=== PATIENT | female | born 1955 | race Caucasian/White ===

== ENCOUNTER → 2018-09-19 12:58 | Outpatient (CLI) | payer OTHER, SELFPAY ==
--- NOTE | 2018-09-19 13:01 | DI.RAD.S_ITS ---
PROCEDURE: XR CHEST 2V INDICATIONS: worsening cough TECHNIQUE: 2 views of the chest were acquired. COMPARISON: None. FINDINGS: Surgical changes and devices: None. Lungs and pleura: Increased bronchovascular markings in bilateral hilar region are seen with mild bronchial wall thickening. Subtle opacity is seen in left lower lung field concerning for small left lower lobe infiltrate. No pleural effusions or pneumothorax. Mediastinum: Mediastinal contours are normal. Heart size is normal. Bones and chest wall: No suspicious bony abnormalities. Soft tissues appear unremarkable. IMPRESSION: Findings suggestive of reactive airway disease such as bronchitis or asthma. Small left lower lobe infiltrate cannot be excluded. Clinical correlation and followup is recommended. Dictated by: Imer Oneil M.D. on 09/19/2018 at 13:23 Approved by: Imer Oneil M.D. on 09/19/2018 at 13:24
== END ==
PROVIDERS: PCP Physician Assistant Medical; Visit Provider Physician Assistant
DX: R05 Cough (principal)
CPT/HCPCS: 71046

== ENCOUNTER → 2018-11-22 15:03 | Outpatient (CLI) | payer OTHER, SELFPAY ==
--- NOTE | 2018-11-22 15:08 | DI.RAD.S_ITS ---
PROCEDURE: XR FOOT LT MIN 3V INDICATIONS: Rolled ankle, pain and swelling, limited WB TECHNIQUE: 3 views of the foot were acquired. COMPARISON: None. FINDINGS: Bones: No fractures or dislocations. 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 No suspicious bony lesions. Soft tissues: No tibiotalar joint effusion. Achilles tendon appears normal. IMPRESSION: No evidence acute bony abnormality of the left foot. Advanced first MTP degenerative change. Dictated by: Myke Mujica M.D. on 11/22/2018 at 15:31 Approved by: Myke Mujica M.D. on 11/22/2018 at 15:32
--- NOTE | 2018-11-22 15:08 | DI.RAD.S_ITS ---
PROCEDURE: XR CHEST 2V INDICATIONS: recent pneumonia, green sputum, cough TECHNIQUE: 2 views of the chest were acquired. COMPARISON: [facility], CR, XR CHEST 2V, 09/19/2018, 13:06. FINDINGS: Surgical changes and devices: None. Lungs and pleura: Lungs are clear. No pleural effusions or pneumothorax. Mediastinum: Mediastinal contours are normal. Heart size is normal. Bones and chest wall: No suspicious bony abnormalities. Soft tissues appear unremarkable. IMPRESSION: Interstitial prominence, previously present, with possible slight lung base scarring from the past but no pneumonia is found. Dictated by: Charanjit Parker M.D. on 11/22/2018 at 15:44 Approved by: Charanjit Parker M.D. on 11/22/2018 at 15:44
--- NOTE | 2018-11-22 15:08 | DI.RAD.S_ITS ---
PROCEDURE: XR ANKLE LT MIN 3V INDICATIONS: Rolled ankle, pain and swelling, limited WB TECHNIQUE: 3 views of the ankle were acquired. COMPARISON: None. FINDINGS: Bones: No fractures or dislocations. Ankle mortise is normally aligned. No suspicious bony lesions. Soft tissues: No tibiotalar joint effusion. Achilles tendon appears normal. IMPRESSION: No evidence acute bony abnormality of the left ankle Dictated by: Myke Mujica M.D. on 11/22/2018 at 15:30 Approved by: Myke Mujica M.D. on 11/22/2018 at 15:31
== END ==
PROVIDERS: PCP Physician Assistant Medical; Visit Provider Physician Assistant
DX: S99.912A Unspecified injury of left ankle, initial encounter (principal); R05 Cough; M25.572 Pain in left ankle and joints of left foot; M25.472 Effusion, left ankle; M19.072 Primary osteoarthritis, left ankle and foot
CPT/HCPCS: 71046; 73610; 73630

== ENCOUNTER → 2023-02-20 12:08 | Outpatient (CLI) | payer OTHER, SELFPAY ==
[2023-02-20 14:43] LABS: Add Manual Diff / Slide Review NO; Basophils Absolute Auto 100 /uL (0-100); Eosinophils Absolute Auto 100 /uL (0-450); Hemoglobin 15.3 g/dL (12.0-16.0); Lymphocytes Absolute Auto 2300 /uL (1100-4500); Lymphocytes Percent Auto 28.2 % (25-40); Mean Corpuscular HGB Conc 33.3 % (30-36); Mean Corpuscular Hemoglobin 27.5 PG (26-34); Mean Corpuscular Volume 82.6 fL (80-100); Monocytes Absolute Auto 500 /uL (0-900); Monocytes Percent Auto 5.9 % (3-14); Neutrophils Absolute Auto 5200 /uL (1500-7000); Neutrophils Percent Auto 63.9 % (50-75); Platelet Count 348 X10^3/uL (150-400); Red Blood Cell Count 5.57 X10^6/uL (4.0-5.2); White Blood Cell Count 8.1 X10^3/uL (4.5-11.0)
[2023-02-20 15:06] LABS: Alanine Aminotransferase 24 IU/L (<35); Albumin 4.4 g/dL (3.5-5.0); Albumin Globulin Ratio 1.3 (1.0-2.8); Alkaline Phosphatase 96 U/L (38-126); Aspartate Aminotransferase 23 IU/L (14-36); BUN Creatinine Ratio 24.6 (6-22); Bilirubin Total 0.7 mg/dL (0.2-1.3); Blood Urea Nitrogen 17 mg/dL (7-17); Calcium 10.8 mg/dL (8.4-10.2); Carbon Dioxide 27 mmol/L (22-32); Chloride 98 mmol/L (98-107); Cholesterol 176 mg/dL (140-199); Estimated Glomerular Filt Rate > 60 mL/min (>60); Globulin 3.4 g/dL (1.7-4.1); Glucose 86 mg/dL (80-110); HDL Cholesterol 60 mg/dL (40-60); HEMOLYSIS < 15 (0-50); LDL Cholesterol Calculated 91 mg/dL (<100); Potassium 4.7 mmol/L (3.4-5.1); Sodium 135 mmol/L (137-145); Total Protein 7.8 g/dL (6.3-8.2); Triglycerides 125 mg/dL (35-150)
== END ==
PROVIDERS: PCP Family Medicine; Referring Provider Family Medicine; Visit Provider Family Medicine
DX: J44.9 Chronic obstructive pulmonary disease, unspecified (principal); I10 Essential (primary) hypertension; M54.9 Dorsalgia, unspecified; G89.29 Other chronic pain; F41.9 Anxiety disorder, unspecified
CPT/HCPCS: 36415; 80053; 80061; 84443; 85025

== ENCOUNTER → 2023-06-20 09:35 | Outpatient (CLI) | payer OTHER, SELFPAY | LOC: RESP 09:36 | PROVIDERS: PCP Family Medicine; Referring Provider Family Medicine; Visit Provider Family Medicine | DX: J44.9 Chronic obstructive pulmonary disease, unspecified (principal); Z87.891 Personal history of nicotine dependence | CPT/HCPCS: 94060 ==

== ENCOUNTER → 2023-07-11 11:26 | Outpatient (CLI) | payer OTHER, SELFPAY ==
--- NOTE | 2023-07-11 11:28 | DI.CT.S_ITS ---
PROCEDURE: CT LUNG LOW DOSE SCREENING INDICATIONS: routine screening TECHNIQUE: Noncontrast 2.0-2.5 mm thick sections acquired from the pulmonary apices to the posterior costophrenic angles. 7 mm thick axial MIP, and 5 mm coronal and sagittal reformats were then acquired. For radiation dose reduction, the following was used: automated exposure control, adjustment of mA and/or kV according to patient size. COMPARISON: CR, XR CHEST 2V, 11/22/2018, 15:07. FINDINGS: Image quality: Diagnostic. Lower Neck: No enlarged lymph nodes. Thyroid: No thyroid nodules which require sonographic follow up, per consensus guidelines. Axillae: No enlarged lymph nodes. Chest Wall: Unremarkable. Bones: Unremarkable. Lungs and Pleura: No pneumothorax or pleural effusions. No consolidation or suspicious nodules. Streaky opacities are present in the left base. Nodular opacity is present in the left base measuring 8 mm. No priors are Heart: Heart size is normal. No pericardial effusion. Thoracic Vessels: The aorta and pulmonary arteries demonstrate normal size. Mediastinum and Ana: No enlarged lymph nodes. Esophagus: No wall thickening. No hiatal hernia. Upper Abdomen: Visualized upper abdomen solid organs and bowel loops appear normal. IMPRESSION: 8 mm nodule in the right base. LUNG-RADS 4A; three-month CT or PET follow-up Clinically Significant Non-pulmonary Findings: None. Dictated by: Bianca Alvarez M.D. on 07/11/2023 at 12:59 Approved by: Bianca Alvarez M.D. on 07/11/2023 at 13:08
--- NOTE | 2023-07-11 11:28 | DI.RAD.S_ITS ---
PROCEDURE: XR DEXA AXIAL SKELETON INDICATIONS: routine screening COMPARISON: None. FINDINGS: Lumbar Spine: Bone mineral density 0.956 g/cm2, T score -0.8, normal. Left Hip: Bone mineral density 0.797 g/cm2, T score -1.2, osteopenia. Left Femoral Neck: Bone mineral density 0.565 g/cm2, T score -2.6, osteoporosis. Right Hip: Bone mineral density 0.786 g/cm2, T score -1.3, osteopenia. Right Femoral Neck: Bone mineral density 0.616 g/cm2, T score -2.1, osteoporosis. Fracture Risk Calculation (when applicable): Cannot be calculated due to osteoporosis diagnosis. (T score greater or equal to -1.0 to: NORMAL) (T score from -1.1 to -2.4: OSTEOPENIA) (T score less than or equal to -2.5: OSTEOPOROSIS) IMPRESSION: Osteoporosis. Follow-up guidelines as follows: Osteoporosis: Consider a repeat DEXA and Vertebral Fracture Assessment (VFA) exam in 2 years or sooner if medically necessary, to reassess this patient's status. Osteopenia: Consider a repeat DEXA in 2-3 years to reassess this patient's status, or if there is a new clinical indication. Normal: Consider a repeat DEXA in 5 years or sooner, or if there is a new clinical indication. Dictated by: Nikunj Winter M.D. on 07/11/2023 at 13:30 Approved by: Nikunj Winter M.D. on 07/11/2023 at 13:36
--- NOTE | 2023-07-11 11:28 | DI.MG.S_ITS ---
BILATERAL DIGITAL SCREENING MAMMOGRAM 3D/2D WITH CAD: 07/11/2023 CLINICAL: Routine screening. Comparison is made to exams dated: 03/21/2022 mammogram, 08/24/2020 mammogram, and 01/11/2017 mammogram - [facility]. Both breasts are heterogeneously dense, which may obscure small masses (category c / 51-75% glandular tissue). Current study was also evaluated with a Computer Aided Detection (CAD) system. There are benign calcifications in both breasts. No significant masses, calcifications, or other findings are seen in either breast. There has been no significant interval change. IMPRESSION: BENIGN There is no mammographic evidence of malignancy. A 1 year screening mammogram is recommended. Based on the Tyrer Cuzick model (a risk assessment model) the patient's lifetime risk is 8.6% and her 10 year risk is 4.1%. According to the ACR, ACS, and NCCN guidelines, an annual breast MRI exam along with mammogram is recommended if the patient's lifetime risk is 20% or greater. This exam was interpreted at Station ID: [id number]. NOTE: For mammograms, a report in lay terms will be sent to the patient. Approximately 15% of breast malignancies will not be visualized mammographically. In the management of a palpable breast mass, a negative mammogram must not discourage biopsy of a clinically suspicious lesion. Electronically Signed By: González barber/elmer:07/11/2023 12:56:07 letter sent: Normal Exam ACR BI-RADS Category 2: Benign Finding(s) 3342F
== END ==
PROVIDERS: PCP Family Medicine; Referring Provider Family Medicine; Visit Provider Family Medicine
DX: Z12.31 Encounter for screening mammogram for malignant neoplasm of breast (principal); Z87.891 Personal history of nicotine dependence; M85.89 Other specified disorders of bone density and structure, multiple sites; R91.1 Solitary pulmonary nodule; Z12.2 Encounter for screening for malignant neoplasm of respiratory organs; M81.0 Age-related osteoporosis without current pathological fracture
CPT/HCPCS: 71271; 77063; 77067; 77080

== ENCOUNTER → 2023-07-27 09:06 | Outpatient (CLI) | payer OTHER, SELFPAY ==
--- NOTE | 2023-07-27 09:07 | DI.ECHO.S_ITS ---
[facility] : : [address] : : [id number] : : Phone: [phone] Echocardiogram Report + + :Name: ANUSHA GRAHAM Study Date: 07/27/2023 Height: 66 in : :Hospital ReadingLocation: Weight: 222 lb : : Gender: Female BSA: 2.1 m2 : :: 1955 Age: 67 yrs BP: 123/65 mmHg: :Reason For Study: EXERTIONAL FATIGUE : :Ordering Physician: VALERI, : :SARAVANAN Performed By: Giuliana Pinto : :Referring: SARAVANAN TRAMMELL : + + Interpretation Summary 1) Normal left ventricular thickness, size, wall motion, and systolic function (EF 55-60%). 2) Normal right ventricular size and function. 3) No significant valvular abnormalities. 4) No prior Echo available for comparison. Procedure: A two-dimensional transthoracic echocardiogram with color flow and Doppler was performed. The study quality was technically adequate. There is no prior echocardiogram noted for this patient. The patient was in sinus bradycardia with heart rates between 54-59 bpm during the exam. Left Ventricle: The left ventricle is normal in size and wall thickness. The ejection fraction is estimated to be 55-60%. Left ventricular systolic function appears normal without focal wall motion abnormalities. Right Ventricle: The right ventricle is normal in size and function. Atria: The left atrial size is normal. Right atrial size is normal. There is no Doppler evidence for an interatrial shunt. Mitral Valve: The mitral valve is normal in structure and function. There is mild mitral annular calcification. There is no mitral regurgitation noted. Aortic Valve: The aortic valve is trileaflet. The aortic valve opens well. There is no aortic valve stenosis. No aortic regurgitation is present. Tricuspid Valve: The tricuspid valve is normal in structure and function. No tricuspid regurgitation. Pulmonary artery pressures cannot be estimated because of the lack of a measurable TR jet velocity. Pulmonic Valve: The pulmonic valve leaflets are thin and pliable; valve motion is normal. There is trace pulmonic regurgitation. Great Vessels: The aortic root is normal size. The dimensions of the ascending aorta are normal. The IVC is of normal diameter and collapses greater than 50% with a sniff. This suggests a low right atrial pressure of 3 mm Hg. Pericardium/ Pleura There is no pericardial effusion. There is no pleural effusion. MMode/2D Measurements & Calculations LVIDd: 5.0 cm LVOT diam: 2.2 cm LVIDs: 3.0 cm Ao root diam: 3.1 cm FS: 39.7 % asc Aorta Diam: 3.2 cm IVSd: 0.83 cm Ao Arch Diam (Prox Trans): 3.5 cm LVPWd: 0.83 cm LV montoya. diameter/BSA (cm/m^2): 2.4 LV sys. diameter/BSA (cm/m^2): 1.4 LA A2 area: 17.0 cm2 RA long axis: 4.8 cm LA A4 area: 23.1 cm2 RA area: 18.1 cm2 LA length (vol): 6.4 cm RA vol: 57.9 ml LA vol: 51.7 ml RA : 27.7 ml/m2 LA vol index: 24.7 ml/m2 IVC diam: 1.5 cm RVD1 (basal): 3.5 cm RVD2 (mid): 3.3 cm TAPSE: 1.9 cm Doppler Measurements & Calculations Ao V2 max: 146.0 cm/sec LVOT Max David: 82.0 cm/sec Ao V2 mean: 100.3 cm/sec LV V1 max P.7 mmHg Ao max P.5 mmHg LV V1 VTI: 20.0 cm Ao mean P.5 mmHg AUTUMN(I,D): 2.2 cm2 Ao V2 VTI: 33.2 cm AUTUMN(V,D): 2.0 cm2 sev ratio: 0.60 AUTUMN indexed to BSA (cm^2/m^2): 1.0 MV E max david: 84.5 cm/sec PA V2 max: 86.8 cm/sec MV A max david: 66.0 cm/sec PA V2 mean: 59.3 cm/sec MV E/A: 1.3 PA mean P.6 mmHg Med Peak E' David: 7.0 cm/sec E/E' med: 12.1 Lat Peak E' David: 8.5 cm/sec E/E' lat: 10.0 E/e' average: 11.0 MV dec time: 0.24 sec SV(LVOT): 72.9 ml Reading Physician:03:45 PM
== END ==
PROVIDERS: PCP Family Medicine; Referring Provider Family Medicine; Visit Provider Family Medicine
DX: I34.81 Nonrheumatic mitral (valve) annulus calcification (principal); T73.3XXA Exhaustion due to excessive exertion, initial encounter
CPT/HCPCS: 93306

== ENCOUNTER 2023-10-24 11:41 | Day surgery (SDC) | payer OTHER, SELFPAY ==
--- NOTE | 2023-10-24 | PATH_ITS ---
[facility] Accession Number: [id number] No. of containers..01 Tissue . 01 Material submitted: . sigmoid colon - SIGMOID POLYP . 01 Diagnosis: SIGMOID POLYP: Tubular adenoma with focal high-grade dysplasia. No invasive malignancy identified. Polyp appears to be completely excised. See comment. . Specimen Comments: At the base of the polyp stalk, there is a rim of nonadenomatous colonic mucosa, suggesting that the polyp is completely excised. Correlation with the clinical endoscopic appearance before and after polypectomy is recommended for further evaluation. [facility] 10/26/20231428 Local . 01 Electronically signed: . Cale Levy MD, Pathologist NPI- [id number] . 01 Gross description: . SIGMOID POLYP: Received in formalin is 1 fragment(s) of brown, soft tissue measuring 1.4 x 1.3 x 1.7 cm which is inked serially sectioned and submitted entirely in 2 cassette(s) /[facility] 10/26/20231428 Local . 01 Pathologist provided ICD-10: D12.5 . 01 CPT . 037561 Specimen Comment: A courtesy copy of this report has been sent to [phone] Performed at: [address] [address], [place], [place] [id number] MD Cale Levy MD Phone: [phone]
[2023-10-24 12:05] VITALS: BP 140/70; PULSE 80; RESP 22; TEMP 36.2; O2SAT 93
[2023-10-24] MEDS: LACTATED RINGERS 1,000 ML 42 ML IV (12:18)
--- NOTE | 2023-10-24 12:37 | PM.HP.1 ---
History of Present Illness History of Present Illness Date Patient Seen: 10/24/23 Time Patient Seen: 12:37 Chief complaint: Screening Colonoscopy Narrative: 68-year-old woman no prior colonoscopy here for screening colonoscopy. No abdominal concerns today. No family history of colon cancer. [facility] Medical History Lung nodule Hypercalcemia Tobacco use disorder Preventative health care Hyperlipidemia Sleep apnea (~2018) COPD (chronic obstructive pulmonary disease) (~2016) Allergies (~1989) Anxiety Restless leg syndrome Osteoporosis Osteopenia Fractures (~2010) Chronic back pain Mumps Chicken pox Painful menstrual periods (~1969) Hypertension Surgical History History of section Family History Brother Diabetes mellitus Sister Diabetes mellitus Mother COPD (chronic obstructive pulmonary disease) with emphysema Social History Smoking Status: Former smoker alcohol intake: current Meds Home Medications and Allergies Home Medications Medication Instructions Recorded Confirmed Type trazodone 50 mg tablet 25 mg (1/2 x 50 mg) PO BEDTIME PRN 02/21/23 09/19/23 Rx insomnia #90 tabs albuterol sulfate 90 mcg/actuation 2 puff inhalation Q4H PRN for 05/17/23 09/19/23 Rx aerosol inhaler wheezing #8.5 grams atorvastatin 20 mg tablet 20 mg PO DAILY #90 tabs 05/19/23 09/19/23 Rx carvedilol 25 mg tablet 25 mg PO BID #180 tabs 05/19/23 09/19/23 Rx fluticasone 500 mcg-salmeterol 50 1 ea inhalation BID #60 ea 05/19/23 09/19/23 Rx mcg/dose blistr powdr for inhalation (Advair Diskus) hydrochlorothiazide 25 mg tablet 25 mg PO DAILY #90 tabs 05/19/23 09/19/23 Rx tiotropium bromide 18 mcg capsule 1 cap inhalation DAILY #90 05/19/23 09/19/23 Rx with inhalation device (Spiriva inhalations with HandiHaler) risedronate 35 mg tablet (Actonel) 35 mg PO QWEEK #12 tabs 08/09/23 09/19/23 Rx sodium,potassium,mag sulfates 17.5 See Rx Instructions PO .COMPLEX 09/13/23 09/19/23 Rx gram-3.13 gram-1.6 gram oral soln #354 mL (Suprep Bowel Prep Kit) Allergies Allergy/AdvReac Type Severity Reaction Status Date / Time No Known Drug Allergies Allergy Verified 09/19/23 13:02 Exam Vital Signs (past 8 hours): - 10/24/23 12:05 Temperature 97.2 F L Pulse Rate 80 Respiratory Rate 22 Blood Pressure 140/70 Pulse Oximetry 93 Oxygen Delivery Method Room Air Oxygen Delivery Method Room Air Narrative Exam Narrative: General adult woman alert oriented no acute distress Chest nonlabored respiration Extremities warm well perfused Assessment & Plan Assessment & Plan narrative: The patient requires colorectal screening and colonoscopy is recommended. Technical details were discussed. Risks, benefits, alternatives explained. Risks including but not limited to myocardial infarction, aspiration, bleeding, pain, missed lesion, incomplete examination, need for further radiographic studies, intestinal injury, and need for major abdominal surgery were discussed. All questions were answered to their satisfaction, and they are in agreement with this plan. Time-Based Coding :: [TOTAL MINUTES] spent with patient and on the chart (including review of chart, obtaining history, exam, reviewing outside data, placing orders, documenting exam and treatment plan, and counseling patient) on [DATE].
[2023-10-24 13:06] VITALS: BP 102/62; PULSE 78; RESP 21; TEMP 36.6; O2SAT 94
--- NOTE | 2023-10-24 13:08 | P.OP.COLON_ITS ---
Operative Date/Time/Diagnoses Date of procedure: 10/24/23 Time of procedure: 13:08 Pre-op diagnosis: Colorectal screening Post-op diagnosis: other (Colonic polyp x1) Procedure & Clinicians Study performed: Colonoscopy Same procedure as scheduled: Yes Indications: Colorectal screening Surgeon: Yrn Alcantar Procedure Notes Procedure in detail: The history and physical was performed/updated and the patient is ASA class is 2. The procedure was discussed in detail with the patient. Potential risks complications including infection, bleeding, missed diagnosis, perforation, need for surgery, and were explained. Their questions were answered and informed consent was obtained. Patient was brought to the procedure room and placed standard monitoring equipment. The patient's vital signs were monitored continuously throughout the entire procedure. Prior to starting time-out was performed. The patient was placed in the left lateral recumbent position. Procedural sedation was administered by anesthesia. Examination began with a thorough inspection of the perianal area there was no evidence of fissures, fistulae, external hemorrhoids or cutaneous malignancy. The colonoscopy scope was then placed into the anal canal and was advanced to the cecum, which was identified by the ileocecal valve, the appendiceal orifice and the confluence of the taenia. The scope was then slowly withdrawn examining colon thoroughly in all directions, irrigating it of any residual stool. The scope was retroflexed within the rectum The patient tolerated the procedure well. They will be discharged once criteria are met. The prep was of good/excellent quality. The withdrawl time was 10 minutes. FINDINGS * 1.5 cm pedunculated polyp within the sigmoid colon. Removed with hot snare in entirety. Site of polyp tattooed. 30 cm from the verge * Internal hemorrhoids Specimen(s): other (Sigmoid polyp) Impression: Colonic polyp x1 Post-procedure Plan for aftercare: Follow-up is dependent on pathology findings Disposition: same day surgery
[2023-10-24 13:10] VITALS: BP 110/67; PULSE 78; RESP 15; O2SAT 94
== END 2023-10-24 13:36 | disposition home or self-care (01) ==
PROVIDERS: PCP Family Medicine; Referring Provider Family Medicine; Visit Provider Surgery
PROC: 0DJD8ZZ Inspection of Lower Intestinal Tract, Via Natural or Artificial Opening Endoscopic (ICD-10-PCS; CPT 45378; principal; 2023-10-24 13:15)
DX: Z12.11 Encounter for screening for malignant neoplasm of colon (principal); K64.8 Other hemorrhoids; D12.5 Benign neoplasm of sigmoid colon
CPT/HCPCS: 45381; 45385; J2704

== ENCOUNTER → 2024-04-26 08:00 | Outpatient (CLI) | payer MEDICARE, SELFPAY ==
[2024-04-26 08:44] LABS: Add Manual Diff / Slide Review NO; Basophils Absolute Auto 100 /uL (0-100); Eosinophils Absolute Auto 100 /uL (0-450); Eosinophils Percent Auto 2.2 % (2-4); Hematocrit 41.8 % (36-46); Hemoglobin 13.4 g/dL (12.0-16.0); Lymphocytes Absolute Auto 1900 /uL (1100-4500); Lymphocytes Percent Auto 31.4 % (25-40); Mean Corpuscular HGB Conc 32.1 % (30-36); Mean Corpuscular Hemoglobin 26.8 PG (26-34); Mean Corpuscular Volume 83.7 fL (80-100); Monocytes Absolute Auto 500 /uL (0-900); Monocytes Percent Auto 7.6 % (3-14); Neutrophils Absolute Auto 3400 /uL (1500-7000); Neutrophils Percent Auto 57.8 % (50-75); Platelet Count 302 X10^3/uL (150-400); Red Blood Cell Count 4.99 X10^6/uL (4.0-5.2); Red Cell Distribution Width 14.7 % (11.6-14.8); White Blood Cell Count 5.9 X10^3/uL (4.5-11.0)
[2024-04-26 09:08] LABS: Alanine Aminotransferase 21 IU/L (<35); Albumin 4.4 g/dL (3.5-5.0); Albumin Globulin Ratio 1.7 (1.0-2.8); Alkaline Phosphatase 79 U/L (38-126); Aspartate Aminotransferase 23 IU/L (14-36); BUN Creatinine Ratio 20.3 (6-22); Bilirubin Total 0.5 mg/dL (0.2-1.3); Blood Urea Nitrogen 15 mg/dL (7-17); Calcium 9.7 mg/dL (8.4-10.2); Carbon Dioxide 30 mmol/L (22-32); Chloride 104 mmol/L (98-107); Cholesterol 144 mg/dL (140-199); Estimated Glomerular Filt Rate > 60 mL/min (>60); Globulin 2.6 g/dL (1.7-4.1); Glucose 95 mg/dL (80-110); HDL Cholesterol 58 mg/dL (40-60); HEMOLYSIS < 15 (0-50); LDL Cholesterol Calculated 74 mg/dL (<100); Potassium 4.9 mmol/L (3.4-5.1); Sodium 139 mmol/L (137-145); Triglycerides 60 mg/dL (35-150)
[2024-04-26 09:36] LABS: TSH w/ Reflex to FT4 1.89 uIU/mL (0.47-4.68)
== END ==
PROVIDERS: PCP Family Medicine; Referring Provider Family Medicine; Visit Provider Family Medicine
DX: Z00.00 Encounter for general adult medical examination without abnormal findings (principal); J44.9 Chronic obstructive pulmonary disease, unspecified; I10 Essential (primary) hypertension; E78.5 Hyperlipidemia, unspecified
CPT/HCPCS: 36415; 80053; 80061; 84443; 85025

== ENCOUNTER → 2024-07-18 09:52 | Outpatient (CLI) | payer MEDICARE, SELFPAY ==
--- NOTE | 2024-07-18 09:55 | DI.CT.S_ITS ---
PROCEDURE: CT CHEST WO CON INDICATIONS: nodule follow up TECHNIQUE: Noncontrast 5 mm thick sections acquired from the pulmonary apices to the posterior costophrenic angles. 1 mm lung window, 5 mm thick coronal and sagittal and 7 mm axial MIP reformats were then acquired. For radiation dose reduction, the following was used: automated exposure control, adjustment of mA and/or kV according to patient size. COMPARISON: [facility], CT, CT LUNG LOW DOSE SCREENING, 07/11/2023, 11:42. FINDINGS: Image quality: Diagnostic. Lower Neck: No enlarged lymph nodes. Thyroid: No thyroid nodules which require sonographic follow up, per consensus guidelines. Axillae: No enlarged lymph nodes. Chest Wall: Unremarkable. Bones: Unremarkable. Lungs and Pleura: No pneumothorax or pleural effusions. Stable appearance of a 1 cm area of bronchiolectasis with adjacent ground-glass density in the right upper lobe. There are [id number] band-like parenchymal densities in the mid to lower lungs bilaterally. Underlying COPD again seen. Heart: Heart size is normal. No pericardial effusion. Thoracic Vessels: The aorta and pulmonary arteries demonstrate normal size. Mediastinum and Ana: No enlarged lymph nodes. Esophagus: No wall thickening. No hiatal hernia. Upper Abdomen: Visualized upper abdomen solid organs and bowel loops appear normal. IMPRESSION: 1. Stable appearance of a mildly complex lung parenchymal lesion in the right upper lobe as described, which may be inflammatory or less likely due to adenocarcinoma spectrum lesion. This can be reassessed with a follow-up study in 1 year. 2. Allowing for bilateral mid to lower lung scarring/atelectasis, no other significant focal lesion seen. Dictated by: Osmar Xavier M.D. on 07/18/2024 at 16:11 Approved by: Osmar Xavier M.D. on 07/18/2024 at 16:18
== END ==
LOC: CT 09:55
PROVIDERS: PCP Family Medicine; Referring Provider Internal Medicine Critical Care Medicine; Visit Provider Internal Medicine Critical Care Medicine
DX: R91.1 Solitary pulmonary nodule (principal); J47.9 Bronchiectasis, uncomplicated; J98.11 Atelectasis; J98.4 Other disorders of lung
CPT/HCPCS: 71250

== ENCOUNTER → 2024-07-18 09:55 | Outpatient (CLI) | payer MEDICARE, SELFPAY ==
--- NOTE | 2024-07-18 09:56 | DI.MG.S_ITS ---
MM screening mammo BI: 07/18/2024. BI-RADS: 1 CLINICAL: 68-year old female for bilateral screening mammogram. Tyrer-Cuzick lifetime risk of 11.1%. No personal or first-degree family history of breast cancer. PRIOR EXAMS 07/11/2023, 03/21/2022, 08/24/2020. MAMMOGRAPHY TECHNIQUE: 2D and 3D (tomosynthesis) digital mammographic views obtained, with additional images as needed for full coverage. Current study was also evaluated with a Computer Aided Detection (CAD) system. DENSITY C. The breasts are heterogeneously dense, which may obscure small masses. MAMMOGRAPHY FINDINGS Bilateral: No suspicious mass, asymmetry, microcalcification, or other abnormality seen. IMPRESSION: * No evidence of malignancy. RECOMMENDATIONS Bilateral * Annual screening mammography. OVERALL ASSESSMENT CATEGORY BI-RADS-1: Negative. The [employer] recommends annual screening mammography beginning at age 40 for women with average risk of breast cancer. ELECTRONICALLY SIGNED: Sonali Arroyo M.D. on 07/22/2024 at 12:52:19 AM PT Interpreting Station ID: [id number]
== END ==
LOC: MAMMO 09:56
PROVIDERS: PCP Family Medicine; Referring Provider Family Medicine; Visit Provider Family Medicine
DX: Z12.31 Encounter for screening mammogram for malignant neoplasm of breast (principal); R92.333 Mammographic heterogeneous density, bilateral breasts
CPT/HCPCS: 77063; 77067

== ENCOUNTER 2025-01-16 12:37 | Day surgery (SDC) | payer MEDICARE, SELFPAY ==
--- NOTE | 2025-01-16 | PATH_ITS ---
[facility] Accession Number: [id number] No. of containers..01 Tissue . 01 Material submitted: . colon - COLON, POLYP @ 45 . 01 Diagnosis: COLON, POLYP @ 45: Sessile serrated adenoma with cytologic dysplasia. No high-grade dysplasia or malignancy identified. [facility] 01/24/2025 1507 Local . 01 Electronically signed: . Cale Levy MD, Pathologist NPI- [id number] . 01 Gross description: . Received in formalin with two patient identifiers, and colon polyp at 45 cm is one, 0.6 cm, gerber tissue fragment, inked black, bisected, and entirely submitted in A1. ([id number]) /MRV 01/24/2025 1507 Local . 01 Pathologist provided ICD-10: D12.6 . 01 CPT . 798366 Specimen Comment: A courtesy copy of this report has been sent to [facility] Performed at: [address] [address], [place], [place] [id number] MD Cale Levy MD Phone: [phone]
--- NOTE | 2025-01-16 06:52 | PM.HP.IH.1 ---
History of Present Illness History of Present Illness Date Patient Seen: 01/16/25 Chief complaint: Screening Colonoscopy Narrative: Presents for colonoscopy today. H/O sigmoid polyp with dysplasia 2023. [facility] Medical History History of colon polyps Well adult exam Lung nodule Hypercalcemia Tobacco use disorder Preventative health care Hyperlipidemia Sleep apnea (~2018) COPD (chronic obstructive pulmonary disease) (~2016) Allergies (~1989) Anxiety Restless leg syndrome Osteoporosis Osteopenia Fractures (~2010) Chronic back pain Mumps Chicken pox Painful menstrual periods (~1969) Hypertension Surgical History History of section Family History Brother Diabetes mellitus Sister Diabetes mellitus Mother COPD (chronic obstructive pulmonary disease) with emphysema Social History alcohol intake: current Meds Home Medications and Allergies Home Medications ?Medication ?Instructions ?Recorded ?Confirmed ?Type atorvastatin 20 mg tablet 20 mg PO DAILY #90 tabs 05/13/24 11/19/24 Rx tiotropium bromide 18 mcg capsule 1 cap inhalation DAILY #90 05/27/24 11/19/24 Rx with inhalation device (Spiriva inhalations with HandiHaler) hydrochlorothiazide 25 mg tablet 25 mg PO DAILY #90 tabs 05/28/24 11/19/24 Rx fluoxetine 20 mg capsule 20 mg PO DAILY #90 caps 10/24/24 11/19/24 Rx carvedilol 25 mg tablet 25 mg PO BID #180 tabs 11/13/24 11/19/24 Rx albuterol sulfate 90 mcg/actuation 2 puff inhalation Q4H PRN for 11/19/24 11/19/24 Rx aerosol inhaler wheezing #8.5 grams fluticasone 500 mcg-salmeterol 50 1 ea inhalation BID #60 ea 11/19/24 11/19/24 Rx mcg/dose blistr powdr for inhalation (Advair Diskus) risedronate 35 mg tablet 35 mg PO QWEEK #12 tabs 11/19/24 11/19/24 Rx trazodone 50 mg tablet 25 mg (1/2 x 50 mg) PO BEDTIME PRN 11/19/24 11/19/24 Rx insomnia #90 tabs sodium,potassium,mag sulfates 17.5 See Rx Instructions PO .COMPLEX 12/13/24 Rx gram-3.13 gram-1.6 gram oral soln #354 mL (Suprep Bowel Prep Kit) Allergies Allergy/AdvReac Type Severity Reaction Status Date / Time No Known Drug Allergies Allergy Verified 11/19/24 09:41 Exam Narrative Exam Narrative: Const General: healthy appearing, comfortable and no acute distress Orientation: alert and oriented x3 HENMT Ears: hearing grossly normal bilaterally Eyes Visual Devlin: normal visual devlin by confrontation Conjunctivae: conjunctivae normal Sclera: sclerae normal EOM: EOM intact bilaterally Resp Effort & Inspection: normal respiratory effort and able to speak in complete sentences Cardio Rate: regular rate GI Palpation: soft (NT) Extrem General: no pedal edema and no calf tenderness Assessment & Plan Assessment and plan (1) History of colon polyps: Status: Acute Plan Plan colonoscopy, possible biopsy. The risks, benefits and options regarding the procedure were explained to the patient in detail. Risk discussion included but not limited to: bleeding, perforation, unable to reach cecum, missed lesion. The patient was encouraged to ask questions and they were answered to their satisfaction. The patient understands and is agreeable to proceed. Time-Based Coding :: [TOTAL MINUTES] spent with patient and on the chart (including review of chart, obtaining history, exam, reviewing outside data, placing orders, documenting exam and treatment plan, and counseling patient) on [DATE]. PROFEE Binder Fixer Document charge(s): Yes Charge Codes Inpatient/observation care including admit and discharge same day: [id number]
[2025-01-16 13:43] VITALS: BP 136/71; PULSE 61; RESP 18; TEMP 36.2; O2SAT 98
[2025-01-16] MEDS: LACTATED RINGERS 1,000 ML 42 ML IV (13:57)
--- NOTE | 2025-01-16 14:35 | P.OP.COLON_ITS ---
Operative Date/Time/Diagnoses Date of procedure: 01/16/25 Time of procedure: 15:01 Pre-op diagnosis: Screening colonoscopy, h/o polyp with dysplasia Post-op diagnosis: other (colon polyp) Procedure & Clinicians Study performed: Screening colonoscopy Same procedure(s) as scheduled: Yes Indications: 69yo F, Screening colonoscopy, h/o polyp with dysplasia 1 year ago, f/u exam today. Surgeon: Ulisses Kelly Anesthesia Type: MAC +/- Procedure Notes SCOAP/Timeout: Performed Procedure in detail: Colonoscopy Patient placed in left lateral recumbent position. Time out was performed. Procedural sedation was administered by anesthesia. Examination began with a thorough inspection of the perianal area. There was no evidence of fissures, fistulae, external hemorrhoids or cutaneous malignancy. The colonoscope was then placed into the rectum and the lumen was insufflated with carbon dioxide. The scope was carefully advanced forward. Ultimately the cecum was intubated and confirmed by identification of the ileocecal valve, the appendiceal orifice and the confluence of the taenia. The scope was then slowly withdrawn examining the colon thoroughly in all directions. In the rectum, retroflexion of the scope was performed for inspection of the distal rectum and anal canal. ?Significant colonoscopy findings: ?1. Quality of the preparation-good, [place] 2-3, improved with irrigation/suction ?2. Single, sessile, 3mm, benign appearing polyp 45cm, removed with cold snare and retrieved for pathology 3. Few sigmoid diverticulae Scope withdrawal time: 8 minutes Findings: polyp(s) Specimen(s): other (polyp) Estimated Blood Loss: 5 Complications: none Impression: Colon polyp at 45cm Post-procedure Recommendations: Colonoscopy in 5 years Plan for aftercare: PACU then home Follow up: as needed Disposition: PACU
[2025-01-16 15:04] VITALS: BP 123/59; PULSE 71; RESP 16; TEMP 36.8; O2SAT 95
[2025-01-16 15:09] VITALS: BP 121/81; PULSE 67; RESP 14; O2SAT 94
[2025-01-16 15:14] VITALS: BP 122/66; PULSE 63; RESP 16; O2SAT 95
[2025-01-16 15:22] VITALS: BP 118/71; PULSE 62; RESP 14; TEMP 36.2; O2SAT 98
== END 2025-01-16 15:35 | disposition home or self-care (01) ==
PROVIDERS: PCP Family Medicine; Referring Provider Family Medicine; Visit Provider Surgery
PROC: 0DJD8ZZ Inspection of Lower Intestinal Tract, Via Natural or Artificial Opening Endoscopic (ICD-10-PCS; CPT 45378; principal; 2025-01-16 14:30)
DX: Z12.11 Encounter for screening for malignant neoplasm of colon (principal); D12.6 Benign neoplasm of colon, unspecified; K57.30 Diverticulosis of large intestine without perforation or abscess without bleeding; Z86.0109 Personal history of other colon polyps; J44.9 Chronic obstructive pulmonary disease, unspecified; G47.33 Obstructive sleep apnea (adult) (pediatric); G25.81 Restless legs syndrome; I10 Essential (primary) hypertension; E66.9 Obesity, unspecified; Z87.891 Personal history of nicotine dependence
CPT/HCPCS: 45385; J2704; J7120